=== PATIENT | male | born 1995 | race Asian ===

== ENCOUNTER 2017-01-03 13:30 | Emergency (ER) | payer OTHER ==
[2017-01-03 13:56] VITALS: BP 136/84; PULSE 77; TEMP 97.9; BMI 24.3
--- NOTE | 2017-01-03 14:20 | PDOC ---
History of Present Illness - General History Source: Patient Exam Limitations: No Limitations - History of Present Illness Initial Comments: 01/03/17 14:26 The patient is a 21 year old male, with no significant past medical history, who presents today complaining of an itchy, painful sunburn on the back and chest after laying out in the sun for 6 or 7 hours at [facility] 2 days ago. The patient [place]block [place]. The patient states that the burning is intermittent and makes it uncomfortable to sit, lay down, or even put a shirt on. He used aloe and colloidal silver to alleviate the burning with mild relief. He reports chills. Denies fever, nausea, vomiting. Denies recent illness. <Tiffany Qiu - Last Filed: 01/03/17 14:26> <Aashish Davis - Last Filed: 01/03/17 16:59> - General Chief Complaint: Sunburn Stated Complaint: SUNBURN Time Seen by Provider: 01/03/17 14:06 Past History <Tiffany Qiu - Last Filed: 01/03/17 14:26> - Psycho/Social/Smoking Cessation Hx Suicidal Ideation: No Smoking History: Never smoked Have you smoked in the past 12 months: No Information on smoking cessation initiated: No Hx Alcohol Use: No Drug/Substance Use Hx: No <Aashish Davis - Last Filed: 01/03/17 16:59> - Past Medical History Allergies/Adverse Reactions: Allergies Allergy/AdvReac Type Severity Reaction Status Date / Time No Known Allergies Allergy Verified 01/03/17 13:45 Home Medications: Ambulatory Orders Hydroxyzine Pamoate [Vistaril -] 50 mg PO TID PRN #10 capsule 01/03/17 Ibuprofen 800 mg PO TID PRN #20 tablet 01/03/17 Review of Systems - Review of Systems Able to Perform ROS?: Yes Comments:: 01/03/17 14:27 CONSTITUTIONAL: Present: chills Absent: fever, no fatigue EYES: Absent: visual changes ENT: Absent: ear pain, no sore throat CARDIOVASCULAR: Absent: chest pain, no palpitations RESPIRATORY: Absent: cough, no SOB GI: Absent: abdominal pain, no nausea, no vomiting, no constipation, no diarrhea GENITOURINARY: Absent: dysuria, no frequency, no hematuria MUSCULOSKELETAL: Absent: back pain, no arthralgia, no myalgia SKIN: Present: sunburn on the chest and back x 2 days <Tiffany Qiu - Last Filed: 01/03/17 14:26> *Physical Exam - Vital Signs Last Vital Signs Temp Pulse Resp BP Pulse Ox 97.9 F 77 20 136/84 99 01/03/17 13:31 01/03/17 13:01/03/17 13:01/03/17 13:31 01/03/17 13:31 - Physical Exam Comments: 01/03/17 14:27 GENERAL: Well-appearing, well-nourished. No apparent distress. HEENT: Normocephalic, atraumatic. PERRL, EOM intact. CARDIOVASCULAR: Normal S1, S2. Regular rate and rhythm. PULMONARY: Clear to auscultation bilaterally. ABDOMEN: Soft, non-distended, non-tender. EXTREMITIES: Normal ROM in all four extremities. No gross deformities. SKIN: +Diffuse erythema of the trunk. No blistering, no excoriations or other skin lesions. NEUROLOGICAL: No focal neurological deficits. <Tiffany Qiu - Last Filed: 01/03/17 14:26> - Vital Signs Last Vital Signs Temp Pulse Resp BP Pulse Ox 97.9 F 77 20 136/84 99 01/03/17 13:31 01/03/17 13:31 01/03/17 13:31 01/03/17 13:31 01/03/17 13:31 <Aashish Davis - Last Filed: 01/03/17 16:59> Medical Decision Making - Medical Decision Making 01/03/17 16:58 Diffuse, very mild erythema of the chest and upper back. No blistering. No excoriations or other lesions. Avoid hot baths and showers. Cool soaks and compresses as needed. Skin moisturizer, oral antihistamine, and anti-inflammatory as directed. Follow-up if condition worsens. Ambulatory and without significant pain or discomfort on discharge to follow-up as directed <Aashish Davis - Last Filed: 01/03/17 16:59> *DC/Admit/Observation/Transfer - Attestations Scribe Attestion: 01/03/17 14:27 Documentation prepared by CHANNING Brown, acting as medical office assistant for Aashish Davis MD. <Tiffany Qiu - Last Filed: 01/03/17 14:26> - Discharge Dispostion Admit: No <Aashish Davis - Last Filed: 01/03/17 16:59> Diagnosis at time of Disposition: Sunburn - Discharge Dispostion Disposition: HOME Condition at time of disposition: Improved - Prescriptions Prescriptions: Ibuprofen 800 mg PO TID PRN #20 tablet PRN Reason: Pain Hydroxyzine Pamoate [Vistaril -] 50 mg PO TID PRN #10 capsule PRN Reason: For Itching - Referrals Referrals: Jannet Rutherford [Staff Physician] - 1 week - Patient Instructions Printed Discharge Instructions: How to Avoid Sunburn, DI for Sunburn - Post Discharge Activity Work/School Note: Back to Work
== END 2017-01-03 14:34 | disposition home or self-care (01) ==
LOC: FER 13:30
DX: L55.9 Sunburn, unspecified (principal)
CPT/HCPCS: 99281-25

== ENCOUNTER 2017-02-16 21:57 | Emergency (ER) | payer OTHER ==
--- NOTE | 2017-02-16 22:04 | PDOC ---
History of Present Illness - General Chief Complaint: Weakness Stated Complaint: I HAVE LYME DISEASE Time Seen by Provider: 02/16/17 21:58 - History of Present Illness Initial Comments: This otherwise healthy 21-year-old male presents with a one-day history of subjective fever along with generalized muscle aches/weakness and fatigue. He has had decreased appetite today but denies nausea/vomiting/diarrhea. He has not noted any rash. He states that his head feels "full" but does not have head or neck pain. There is no neck stiffness. No dysuria/hematuria. He does not recall any tick embedded but lives locally in tick borne illness endemic area. Of note, the patient was recently in [place] for one week, arriving home by plane 5 days ago. During the vacation, patient states that he was bitten by mosquitoes multiple times. No known history of tick borne illnesses Patient has PMD( Dr. Del Angel) . No significant past medical history On no medications No known ALLERGIES 0 Past History - Past Medical History Allergies/Adverse Reactions: Allergies Allergy/AdvReac Type Severity Reaction Status Date / Time No Known Allergies Allergy Verified 01/03/17 13:45 Home Medications: Ambulatory Orders NK [No Known Home Medication] 02/16/17 - Psycho/Social/Smoking Cessation Hx Suicidal Ideation: No Smoking History: Never smoked Have you smoked in the past 12 months: No Hx Alcohol Use: No Drug/Substance Use Hx: No Review of Systems - Review of Systems Able to Perform ROS?: Yes Comments:: 12 point review of systems is negative except for what is noted in the history of present illness *Physical Exam - Physical Exam Comments: GENERAL: Young adult male, alert and oriented 3, in minimal distress secondary to muscle aches HEAD: Normal with no signs of trauma. EYES: PERRLA, EOMI, sclera anicteric, conjunctiva clear. ENT: Ears normal, nares patent, oropharynx clear without exudates. Dry mucous membranes. NECK: Normal range of motion, supple without lymphadenopathy, JVD, or masses. LUNGS: Breath sounds equal, clear to auscultation bilaterally. No wheezes, and no crackles. HEART:Regular rate and rhythm, normal S1 and S2 without murmur, rub or gallop. ABDOMEN:.normal bowel sounds No guarding,tenderness or rebound.No masses No distention. EXTREMITIES: Normal range of motion, no edema. No clubbing or cyanosis. No erythema, or tenderness. NEUROLOGICAL: Cranial nerves II through XII grossly intact. Normal speech. No focal neurological deficits. MUSCULOSKELETAL: Back non-tender to palpation, no CVA tenderness SKIN: Warm, Dry, normal turgor, no rashes or lesions noted. ED Treatment Course - LABORATORY CBC & Chemistry Diagram: 02/16/17 23:05 02/16/17 23:05 Medical Decision Making - Medical Decision Making This 21-year-old man, and previous excellent health, presents with a one-day history of febrile illness. of Note, patient was visiting [place] one-week to 10 days ago and had multiple mosquito bites. [facility] [place]. He lives locally in an endemic area for tickborne disease. Other than dry mucous membranes, exam is unremarkable Patient given a liter of normal saline/30 mg of Toradol IV. CBC/chemistry profile/Lyme titers sent CBC and chemistry profile is essentially unremarkable except for moderate prerenal azotemia. Results discussed with the patient. Since there are no typical laboratory findings seen in acute Lyme/anaplasmosis/babesiosis, tickborne disease less likely. However, this is it is still possible and the patient has been urged to monitor his symptoms and return to the emergency room if he has worsening weakness or pain. He also may have mosquito born illness. He is not currently or otherwise at risk for transmitting Zika virus to partner who may become patient will stay home from work tomorrow, resting and drinking plenty of fluids. *DC/Admit/Observation/Transfer Diagnosis at time of Disposition: Viral syndrome - Discharge Dispostion Disposition: HOME Condition at time of disposition: Stable - Referrals Referrals: Carlos Del Angel [Primary Care Provider] - 1 week - Patient Instructions Printed Discharge Instructions: DI for Viral Syndrome Additional Instructions: Rest; no work tomorrow Drink plenty of fluids Tylenol/Motrin/Aleve as needed for pain or fever Return to ER if you have severe headache/vomiting/persistent high fever Follow-up with your doctor within the next 5-7 days - Post Discharge Activity Work/School Note: Back to Work, Back to School
[2017-02-16 22:05] VITALS: BP 115/73; PULSE 94; TEMP 100; BMI 25.8
[2017-02-16] MEDS ORDERED: SODIUM CHLORIDE 1,000 ML IV STA (22:55)
[2017-02-16] MEDS ORDERED: KETOROLAC TROMETHAMINE 30 MG/1 ML VIAL IVPUSH ONE (22:55)
[2017-02-16] MEDS ORDERED: KETOROLAC TROMETHAMINE 30 MG/1 ML VIAL ONE (23:00)
[2017-02-16 23:27] LABS: ALBUMIN 4.3 g/dl (3.5-5.0); ALK PHOS 71 U/L (32-92); ANION GAP 7 (8-16); BILIRUBIN,TOTAL 0.5 mg/dl (0.2-1.0); CALCIUM 8.7 mg/dl (8.4-10.2); CO2 24 mmol/L (22-28); GLUCOSE,RANDOM 103 mg/dl (74-106); SGOT/AST 31 U/L (10-42); SGPT/ALT 22 U/L (10-40)
[2017-02-16 23:35] LABS: BASOPHIL 0.9 % (0-2.0); MCH 29.4 pg (25.7-33.7); MCHC 35.4 g/dl (32.0-35.9); MEAN CELL VOLUME 83.1 fl (80-96); MEAN PLT VOLUME 7.7 fl (7.5-11.1); NEUTROPHILS 81.2 % (42.8-82.8); PLATELET COUNT 157 K/MM3 (134-434); RDW 12.7 % (11.9-15.9); WHITE BLOOD COUNT 6.8 K/mm3 (4.0-10.8)
== END 2017-02-17 00:05 | disposition home or self-care (01) ==
LOC: FER 21:57
PROC: 3E0333Z Introduction of Anti-inflammatory into Peripheral Vein, Percutaneous Approach (ICD-10-PCS; principal; 2017-02-16)
PROC: 3E0337Z Introduction of Electrolytic and Water Balance Substance into Peripheral Vein, Percutaneous Approach (ICD-10-PCS; 2017-02-16)
DX: B34.9 Viral infection, unspecified (principal)
CPT/HCPCS: 36415; 80053; 85025; 86308; 86618; 99282-25